=== PATIENT | female | born 1985 | race Caucasian/White ===

== ENCOUNTER 2019-04-19 20:46 | Emergency (ER) | payer OTHER ==
[2019-04-19 20:57] VITALS: BP 141/93
--- NOTE | 2019-04-19 21:10 | UC ---
Upper Extremity HPI - HPI Summary HPI Summary: Patient is a 33-year-old female here after mechanical fall. Patient tripped and fell across the street 8 hours ago. Patient landed on her right hand. Patient's had pain in her right wrist since then. Patient also has an abrasion to her bilateral knees and left hand. Patient is up-to-date on tetanus. Patient's numbness or tingling. Medications reviewed - History of Current Complaint Chief Complaint: UCUpperExtremity Stated Complaint: RT. WRIST INJURY Time Seen by Provider: 04/19/19 21:00 Hx Obtained From: Patient Hx Last Menstrual Period: END MARCH Onset/Duration: Sudden Onset Pain Intensity: 3 - Allergies/Home Medications Allergies/Adverse Reactions: Allergies Allergy/AdvReac Type Severity Reaction Status Date / Time MUSCLE RELAXER Allergy LIPS BLUE, Uncoded 04/19/19 20:57 ARMS TINGLING Home Medications: Home Medications Cetirizine* [ZyrTEC 10 MG TAB*] 1 tab PO DAILY PRN 04/19/19 [History Confirmed 04/19/19] Ibuprofen TAB* [Advil TAB*] 600 mg PO ONCE PRN 04/19/19 [History Confirmed 04/19] PMH/Surg Hx/FS Hx/Imm Hx Previously Healthy: Yes - Surgical History Surgical History: None - Family History Known Family History: Positive: Non-Contributory - Social History Alcohol Use: None Substance Use Type: None Smoking Status (MU): Never Smoked Tobacco - Immunization History Most Recent Tetanus Shot: <5 YEARS Review of Systems All Other Systems Reviewed And Are Negative: Yes Constitutional: Negative: Fever, Chills Skin: Negative: Bruising Respiratory: Negative: Shortness Of Breath Cardiovascular: Negative: Chest Pain Gastrointestinal: Negative: Abdominal Pain Physical Exam - Summary Physical Exam Summary: Vital Signs Reviewed: Yes A+Ox3, no distress Eyes: Conjunctiva Clear ENT: Hearing grossly normal neck: supple Respiratory: Positive: No respiratory distress, No accessory muscle use Cardiovascular: skin color reflect adequate perfusion Musculoskeletal Exam: Tenderness in the right snuffbox. Radial pulse 2+. No proximal or distal tenderness. No bony tenderness in bilateral knees or left hand. Neurological: Positive: Alert, ambulatory without difficulty Triage Information Reviewed: Yes Vital Signs: Initial Vital Signs Temp 98 F 04/19/19 20:53 Pulse 72 04/19/19 20:53 Resp 16 04/19/19 20:53 BP 141/93 04/19/19 20:53 Pulse Ox 99 04/19/19 20:53 Upper Extremity Course/Dx - Course Course Of Treatment: Patient is here after a mechanical fall. Patient had an x-ray of her right wrist which showed no fracture per my read. She did have scaphoid tenderness so she is placed in a thumb spica splint. Patient did not need any other imaging here. She is up-to-date on tetanus - Differential Dx/Diagnosis Differential Diagnosis/HQI/PQRI: Contusion, Fracture (Closed), Hematoma, Strain , Sprain Provider Diagnosis: Right wrist sprain, Fall Discharge - Sign-Out/Discharge Documenting (check all that apply): Patient Departure All imaging exams completed and their final reports reviewed: No - Discharge Plan Condition: Stable Disposition: HOME Patient Education Materials: Scaphoid Fracture (ED), Wrist Sprain (ED) Referrals: Deyvi Whyte MD [Primary Care Provider] - Additional Instructions: Please wear your wrist splint over the next week. Please follow-up with your doctor in 1 week for reevaluation Please take Tylenol and Motrin for pain - Billing Disposition and Condition Condition: STABLE Disposition: Home
--- NOTE | 2019-04-20 08:03 | UC ---
- Progress Note Progress Note: wet read correct Course/Dx - Diagnoses Provider Diagnoses: Right wrist sprain, Fall Discharge - Sign-Out/Discharge Documenting (check all that apply): Post-Discharge Follow Up All imaging exams completed and their final reports reviewed: Yes - Discharge Plan Condition: Stable Disposition: HOME Patient Education Materials: Scaphoid Fracture (ED), Wrist Sprain (ED) Referrals: Deyvi Whyte MD [Primary Care Provider] - Additional Instructions: Please wear your wrist splint over the next week. Please follow-up with your doctor in 1 week for reevaluation Please take Tylenol and Motrin for pain - Billing Disposition and Condition Condition: STABLE Disposition: Home
== END 2019-04-19 21:31 | disposition home or self-care (01) ==
LOC: UCEAST 20:46
DX: S63.501A Unspecified sprain of right wrist, initial encounter (principal); W18.30XA Fall on same level, unspecified, initial encounter; Y92.410 Unspecified street and highway as the place of occurrence of the external cause
CPT/HCPCS: 99213; G0463